=== PATIENT | female | born 1965 | race Caucasian/White ===

== ENCOUNTER 2019-06-20 12:04 | Inpatient (IN) | payer BC, OTHER ==
[~2019-06-20] VITALS: Ht 157.5 cm; Wt 50.0 kg
[2019-06-20 12:05] VITALS: BP_SYST 133
[2019-06-20] MEDS ORDERED: methylPREDNISolone SOD SUCC/PF 62.5 MG/ML VIAL IVP ONE ×2 (12:15→13:00)
[2019-06-20] MEDS ORDERED: ALBUTEROL SULFATE 0.083% 2.5 MG/3 ML VIAL.NEB INH ONE (12:15)
[2019-06-20] MEDS ORDERED: MAGNESIUM SULFATE 50 ML IV ONE (12:15)
[2019-06-20] MEDS ORDERED: IPRATROPIUM BROM 0.5 MG/2.5 ML VIAL.NEB (ATROVENT) INH ONE (12:15)
[2019-06-20 12:42] LABS: BASOPHILS % (AUTO) 0.2 % (0.0-2.0); HEMATOCRIT 44.7 % (36-48); LYMPHOCYTES # (AUTO) 0.3 K/uL (1.0-5.5); LYMPHOCYTES % (AUTO) 7.1 % (20.5-51.5); MEAN CORPUSCULAR HEMOGLOBIN 29 pg (27-31); MEAN CORPUSCULAR HGB CONC 34 % (32-36); MEAN CORPUSCULAR VOLUME 87 fL (79.0-98.0); MONOCYTES # (AUTO) 0.5 K/uL (0.0-1.0); MONOCYTES % (AUTO) 12.6 % (1.7-9.3); NEUTROPHILS # (AUTO) 3.3 K/uL (1.8-7.7); NEUTROPHILS % (AUTO) 80.1 % (40.0-70.0); PLATELET COUNT (AUTO) 183 K/uL (130-430); RED BLOOD CELL COUNT(AUTO) 5.13 MIL/uL (4.2-6.2); RED CELL DISTRIBUTION WIDTH 13.8 % (9.0-15.0); WHITE BLOOD COUNT (AUTO) 4.1 K/uL (4.8-10.8)
[2019-06-20 12:46] LABS: ANION GAP 12 (5-15); CALCIUM 8.1 mg/dL (8.4-11.0); CHLORIDE 93 mmol/L (98-107); CREATININE 1.39 mg/dL (0.55-1.30); GLUCOSE 121 mg/dL (70-99); POTASSIUM 3.2 mmol/L (3.5-5.1); SODIUM SERUM 133 mmol/L (136-145); UREA NITROGEN, BLOOD 15 mg/dL (8-21)
[2019-06-20 12:49] LABS: GFR AFRICAN AMERICAN 51 mL/min (>90)
[2019-06-20 12:50] LABS: INR 1.2 (0.8-1.2); PROTHROMBIN TIME 11.6 SECS (9.5-12.5)
[2019-06-20 13:00] LABS: ALANINE AMINOTRANSFERASE 95 U/L (12-78); ALBUMIN 3.4 g/dL (3.4-4.8); ASPARTATE AMINOTRANSFERASE 134 U/L (10-37); TOTAL BILIRUBIN 0.7 mg/dL (0.0-1.0)
[2019-06-20] MEDS ORDERED: methylPREDNISolone SOD SUCC/PF 62.5 MG/ML VIAL ONE (13:04)
[2019-06-20] MEDS ORDERED: AZITHROMYCIN 500 MG in NS 250 ML IV ONE (13:15)
[2019-06-20] MEDS ORDERED: PIPERACILLIN/TAZO 3.375 GM in NS 50 ML IV ONE (13:15)
[2019-06-20] MEDS ORDERED: VANCOMYCIN HCL 1,000 MG in NS 250 ML IV ONE (13:15)
[2019-06-20] MEDS ORDERED: PROPOFOL DRIP 100 ML IV ONE ×3 (13:30→22:41)
[2019-06-20] MEDS ORDERED: NACL 0.9% 2,000 ML IV ONE (13:45)
[2019-06-20] MEDS ORDERED: ENOXAPARIN SODIUM 60 MG/0.6 ML SYRINGE SUBCUT ONE (13:45)
[2019-06-20] MEDS ORDERED: LORazepam 2 MG/ML VIAL IVP ONE (14:15)
[2019-06-20] MEDS ORDERED: AZITHROMYCIN 500 MG/VIAL (ZITHROMAX) IV ONE (14:49)
[2019-06-20] MEDS ORDERED: PIPERACILLIN/TAZOBACTAM 3.375 GM/VIAL (ZOSYN) IV ONE (14:49)
[2019-06-20 15:06] LABS: ALCOHOL, BLOOD < 3 mg/dL (<10)
[2019-06-20] MEDS ORDERED: VANCOMYCIN HCL 1000 MG/VIAL IV ONE ×2 (15:20→15:23)
[2019-06-20] MEDS ORDERED: IOHEXOL 350 mgI/mL, 150 ML INFUS..BTL IV ONE (15:55)
[2019-06-20] MEDS ORDERED: NOREPINEPHRINE BITARTRATE 4 MG in NS 246 ML IV ONE (16:00)
[2019-06-20] MEDS ORDERED: ASPIRIN 600 MG/SUPP.RECT RC ONE (16:15)
[2019-06-20] MEDS ORDERED: NOREPINEPHRINE 4 MG/4 ML VIAL IV ONE ×2 (16:17→21:50)
[2019-06-20] MEDS ORDERED: IPRATROPIUM/ALBUTEROL SULFATE 3 ML AMPUL.NEB (DUONEB) INH ONE (17:00)
[2019-06-20] MEDS ORDERED: ACETAMINOPHEN 325 MG SUPP.RECT RC ONE (17:00)
[2019-06-20] MEDS ORDERED: IPRATROPIUM/ALBUTEROL SULFATE 3 ML AMPUL.NEB (DUONEB) INH PRN (17:00)
[2019-06-20] MEDS ORDERED: DEXTROSE 50% JECT 50 ML DISP.SYRIN IVP PRN (17:00)
[2019-06-20] MEDS ORDERED: ROCURONIUM BROMIDE 10 MG/ML (ZEMURON) IV ONE (17:07)
[2019-06-20] MEDS ORDERED: ETOMIDATE 20 MG/ 10 ML VIAL (AMIDATE) IVP ONE (17:07)
[2019-06-20] MEDS ORDERED: POTASSIUM CHLORIDE 40 MEQ in NS 250 ML IV ONE (17:30)
[2019-06-20] MEDS ORDERED: PANTOPRAZOLE SODIUM 40 MG/VIAL (PROTONIX) IVP ONE (17:30)
[2019-06-20 18:01] LABS: CREATININE 1.08 mg/dL (0.55-1.30); POTASSIUM 3.4 mmol/L (3.5-5.1)
[2019-06-20 18:26] LABS: BARBITURATE, URINE NEGATIVE (NEG <=200); BENZODIAZEPINE, URINE POSITIVE (NEG <=150); CANNABINOID, URINE NEGATIVE (NEG <=50); COCAINE, URINE NEGATIVE (NEG <=150); METHAMPHETAMINES SCREEN,URINE POSITIVE (NEG <=500); OPIATE, URINE NEGATIVE (NEG <=100); PHENCYCLIDINE SCREEN,URINE NEGATIVE (NEG <=25); UR TRICYCLIC ANTIDEPRESSANTS NEGATIVE (NEG <=300); URINE AMPHETAMINE POSITIVE (NEG <=500); URINE METHADONE NEGATIVE (NEG <=200); URINE OXYCODONE SCREEN NEGATIVE (NEG <=100); URINE PROPOXYPHENE SCREEN NEGATIVE (NEG <=300)
[2019-06-20 18:41] LABS: CALCIUM 6.6 mg/dL (8.4-11.0)
[2019-06-20] MEDS: methylPREDNISolone SOD SUCC/PF 62.5 MG/ML VIAL IVP SCH (18:50)
[2019-06-20 19:11] LABS: CKMB RELATIVE INDEX 0.6 (0.0-2.9); CREATINE KINASE MB 1.4 ng/mL (0-3.6)
[2019-06-20] MEDS: PANTOPRAZOLE SODIUM 40 MG/VIAL (PROTONIX) IVP SCH (21:00)
[2019-06-20] MEDS ORDERED: D5LR 1,000 ML IV SCH (22:15)
[2019-06-21] VITALS (27 sets, daily range): BP systolic 82–118
[2019-06-21] MEDS: methylPREDNISolone SOD SUCC/PF 62.5 MG/ML VIAL IVP SCH ×5 (00:37→23:59)
[2019-06-21] MEDS ORDERED: NOREPINEPHRINE 4 MG/4 ML VIAL IV ONE ×2 (01:59→06:51)
[2019-06-21] MEDS ORDERED: PROPOFOL 200MG/ 20ML VIAL (DIPRIVAN) IV PRN (02:00)
[2019-06-21] MEDS: NOREPINEPHRINE BITARTRATE 4 MG in NS 246 ML IV PRN ×6 (02:50→23:34)
[2019-06-21] MEDS: D5LR 1,000 ML IV SCH ×3 (05:58→21:25)
[2019-06-21] MEDS: INSULIN REGULAR, HUMAN 100 UNITS/ML, 10 ML VIAL (humuLIN R) SUBCUT PRN ×2 (06:24→12:38)
[2019-06-21 06:25] LABS: BASOPHILS % (AUTO) 0.1 % (0.0-2.0); EOSINOPHILS % (AUTO) 0.1 % (0.0-4.0); HEMATOCRIT 38.9 % (36-48); HEMOGLOBIN 12.7 g/dL (12.0-16.0); LYMPHOCYTES # (AUTO) 0.4 K/uL (1.0-5.5); LYMPHOCYTES % (AUTO) 25.1 % (20.5-51.5); MEAN CORPUSCULAR HEMOGLOBIN 29 pg (27-31); MEAN CORPUSCULAR HGB CONC 33 % (32-36); MEAN CORPUSCULAR VOLUME 89 fL (79.0-98.0); MONOCYTES # (AUTO) 0.1 K/uL (0.0-1.0); NEUTROPHILS # (AUTO) 1.2 K/uL (1.8-7.7); NEUTROPHILS % (AUTO) 67.7 % (40.0-70.0); PLATELET COUNT (AUTO) 129 K/uL (130-430); RED BLOOD CELL COUNT(AUTO) 4.38 MIL/uL (4.2-6.2)
[2019-06-21] MEDS: IPRATROPIUM/ALBUTEROL SULFATE 3 ML AMPUL.NEB (DUONEB) INH SCH ×5 (07:05→23:35)
[2019-06-21 07:28] LABS: WHITE BLOOD COUNT (AUTO) 1.8 K/uL (4.8-10.8)
[2019-06-21 08:16] LABS: POTASSIUM 4.2 mmol/L (3.5-5.1)
[2019-06-21 08:23] LABS: CALCIUM 6.5 mg/dL (8.4-11.0)
[2019-06-21 08:24] LABS: CREATININE 0.95 mg/dL (0.55-1.30); TOTAL BILIRUBIN 0.4 mg/dL (0.0-1.0)
[2019-06-21] MEDS: PROPOFOL DRIP 100 ML IV PRN ×2 (08:24→16:45)
[2019-06-21 08:25] LABS: PHOSPHORUS 2.5 mg/dL (2.7-4.5)
[2019-06-21] MEDS ORDERED: FLU VACC TS2019(65UP)/MF59C/PF 45 MCG/0.5 ML SYRINGE I.M. PRN (09:30)
[2019-06-21] MEDS ORDERED: NS 500 ML IV ONE (09:30)
[2019-06-21] MEDS ORDERED: PIPERACILLIN/TAZO 4.5GM/DEX-IS 100 ML IV ONE (09:30)
[2019-06-21] MEDS: ENOXAPARIN SODIUM 40 MG/0.4 ML SYRINGE SUBCUT SCH (09:39)
[2019-06-21] MEDS: PANTOPRAZOLE SODIUM 40 MG/VIAL (PROTONIX) IVP SCH ×2 (09:41→21:25)
[2019-06-21] MEDS ORDERED: FLU VACC QS2019-20 36MOS UP/PF 60 MCG/0.5 ML SYRINGE I.M. PRN (09:45)
[2019-06-21] MEDS: AZITHROMYCIN 250 MG in NS 250 ML IV SCH (13:28)
[2019-06-21] MEDS: PIPERACILLIN/TAZO 4.5GM/DEX-IS 100 ML IV SCH ×2 (14:49→21:25)
[2019-06-21] MEDS ORDERED: FILGRASTIM Non-Formulary 0.48 MG/VIAL SUBCUT SCH (17:00)
[2019-06-21] MEDS ORDERED: TBO-FILGRASTIM 480 MCG/0.8 ML SYRINGE SUBCUT SCH (17:00)
[2019-06-21 17:19] LABS: HEMATOCRIT 39.9 % (36-48); MEAN CORPUSCULAR HEMOGLOBIN 29 pg (27-31); MEAN CORPUSCULAR HGB CONC 33 % (32-36); MEAN CORPUSCULAR VOLUME 89 fL (79.0-98.0); PLATELET COUNT (AUTO) 119 K/uL (130-430); RED BLOOD CELL COUNT(AUTO) 4.51 MIL/uL (4.2-6.2); RED CELL DISTRIBUTION WIDTH 14.5 % (9.0-15.0)
[2019-06-21 17:22] LABS: WHITE BLOOD COUNT (AUTO) 1.7 K/uL (4.8-10.8)
[2019-06-21 17:33] LABS: CREATININE 1.19 mg/dL (0.55-1.30); PHOSPHORUS 1.9 mg/dL (2.7-4.5); POTASSIUM 3.9 mmol/L (3.5-5.1)
[2019-06-21 17:37] LABS: CALCIUM 6.5 mg/dL (8.4-11.0)
[2019-06-21 18:04] LABS: BAND % (MANUAL) 41 % (0-6); LYMPHOCYTES % (MANUAL) 15 % (20-46); MONOCYTES % (MANUAL) 14 % (0-11)
[2019-06-21 18:05] LABS: BASOPHILS % (MANUAL) 0 % (0-2); EOSINOPHILS % (MANUAL) 0 % (0-7); METAMYELOCYTES % 8 % (0-0)
[2019-06-21] MEDS: LINEZOLID 300 ML IV SCH (21:26)
[2019-06-22] VITALS (35 sets, daily range): BP systolic 81–184
[2019-06-22] MEDS: PROPOFOL DRIP 100 ML IV PRN ×2 (00:05→17:27)
[2019-06-22] MEDS: NOREPINEPHRINE BITARTRATE 4 MG in NS 246 ML IV PRN (02:20)
[2019-06-22] MEDS: IPRATROPIUM/ALBUTEROL SULFATE 3 ML AMPUL.NEB (DUONEB) INH SCH ×6 (03:35→23:13)
[2019-06-22] MEDS: methylPREDNISolone SOD SUCC/PF 62.5 MG/ML VIAL IVP SCH ×3 (04:59→18:42)
[2019-06-22] MEDS: PIPERACILLIN/TAZO 4.5GM/DEX-IS 100 ML IV SCH (05:00)
[2019-06-22] MEDS: D5LR 1,000 ML IV SCH ×2 (05:00→08:48)
[2019-06-22] MEDS: INSULIN REGULAR, HUMAN 100 UNITS/ML, 10 ML VIAL (humuLIN R) SUBCUT PRN (07:05)
[2019-06-22 08:18] LABS: HEMATOCRIT 38.4 % (36-48); HEMOGLOBIN 12.2 g/dL (12.0-16.0); MEAN CORPUSCULAR HEMOGLOBIN 29 pg (27-31); MEAN CORPUSCULAR HGB CONC 32 % (32-36); MEAN CORPUSCULAR VOLUME 91 fL (79.0-98.0); PLATELET COUNT (AUTO) 76 K/uL (130-430); RED BLOOD CELL COUNT(AUTO) 4.25 MIL/uL (4.2-6.2); WHITE BLOOD COUNT (AUTO) 4.5 K/uL (4.8-10.8)
[2019-06-22 08:29] LABS: ALBUMIN 1.5 g/dL (3.4-4.8); CREATININE 2.66 mg/dL (0.55-1.30); FREE T4 (FREE THYROXINE) 1.4 ng/dl (0.8-1.5); PHOSPHORUS 4.4 mg/dL (2.7-4.5); POTASSIUM 4.1 mmol/L (3.5-5.1); TOTAL BILIRUBIN 0.8 mg/dL (0.0-1.0)
[2019-06-22 08:36] LABS: CALCIUM 6.2 mg/dL (8.4-11.0)
[2019-06-22 08:44] LABS: INR 1.2 (0.8-1.2)
[2019-06-22] MEDS: NOREPINEPHRINE BITARTRATE 8 MG in NS 242 ML IV PRN ×2 (08:48→17:41)
[2019-06-22] MEDS: PANTOPRAZOLE SODIUM 40 MG/VIAL (PROTONIX) IVP SCH ×2 (08:48→21:07)
[2019-06-22] MEDS: LINEZOLID 300 ML IV SCH ×2 (08:49→21:13)
[2019-06-22] MEDS: ENOXAPARIN SODIUM 40 MG/0.4 ML SYRINGE SUBCUT SCH (08:50)
[2019-06-22] MEDS ORDERED: ALBUMIN HUMAN 5% 500 ML IV ONE (09:00)
[2019-06-22] MEDS ORDERED: ALBUMIN HUMAN 25% 100 ML IV ONE (09:45)
[2019-06-22] MEDS ORDERED: FUROSEMIDE 40 MG/4 ML VIAL IVP ONE (10:15)
[2019-06-22 10:37] LABS: ATYPICAL LYMPHOCYTES % 2 % (0-0); BAND % (MANUAL) 21 % (0-6); BASOPHILS % (MANUAL) 0 % (0-2); EOSINOPHILS % (MANUAL) 0 % (0-7); LYMPHOCYTES % (MANUAL) 22 % (20-46); MONOCYTES % (MANUAL) 12 % (0-11)
[2019-06-22 10:38] LABS: METAMYELOCYTES % 4 % (0-0)
[2019-06-22] MEDS: AZITHROMYCIN 250 MG in NS 250 ML IV SCH (11:17)
[2019-06-22] MEDS ORDERED: DEXTROSE 50% JECT 50 ML DISP.SYRIN IVP PRN (12:00)
[2019-06-22] MEDS ORDERED: INSULIN REGULAR, HUMAN 100 UNITS/ML, 10 ML VIAL (humuLIN R) SUBCUT PRN (12:00)
[2019-06-22] MEDS ORDERED: CALCIUM CHLORIDE 1 GM in NS 100 ML IV ONE (13:00)
[2019-06-22 13:27] LABS: CREATININE 3.18 mg/dL (0.55-1.30); POTASSIUM 4.4 mmol/L (3.5-5.1)
[2019-06-22] MEDS: SODIUM BICARBONATE 8.4% JECT 100 MEQ in D5W 1,000 ML IV SCH ×2 (13:31→20:48)
[2019-06-22 13:41] LABS: INR 1.4 (0.8-1.2); PROTHROMBIN TIME 13.7 SECS (9.5-12.5)
[2019-06-22 13:44] LABS: CALCIUM 6.1 mg/dL (8.4-11.0)
[2019-06-22] MEDS ORDERED: ACETAMINOPHEN 650 MG/20.3 ML UDC GT PRN (14:45)
[2019-06-22] MEDS ORDERED: FUROSEMIDE 100 MG in D5W 90 ML IV SCH (15:30)
[2019-06-22 16:10] LABS: ANTI NUCLEAR AB WITH REFLEX Positive (Negative)
[2019-06-22 18:05] LABS: CREATININE 3.56 mg/dL (0.55-1.30); POTASSIUM 4.5 mmol/L (3.5-5.1)
[2019-06-22 18:12] LABS: CALCIUM 6.8 mg/dL (8.4-11.0)
[2019-06-22] MEDS: PIPERACILLIN/TAZO 2.25G/DEX-IS 50 ML IV SCH (18:42)
[2019-06-22] MEDS ORDERED: NOREPINEPHRINE BITARTRATE 16 MG in NS 234 ML IV PRN (19:00)
[2019-06-22] MEDS ORDERED: ALBUMIN HUMAN 25% 50 ML IV ONE (19:30)
[2019-06-22] MEDS ORDERED: CALCIUM GLUCONATE 1 GM in NS 100 ML IV ONE (19:30)
[2019-06-22 23:35] LABS: CREATININE 4.01 mg/dL (0.55-1.30); POTASSIUM 4.6 mmol/L (3.5-5.1)
[2019-06-22 23:47] LABS: CALCIUM 6.9 mg/dL (8.4-11.0)
[2019-06-23] VITALS (20 sets, daily range): BP systolic 80–149
[2019-06-23 00:08] LABS: CREATINE KINASE MB 2.6 ng/mL (0-3.6)
[2019-06-23] MEDS: PIPERACILLIN/TAZO 2.25G/DEX-IS 50 ML IV SCH ×3 (00:08→12:02)
[2019-06-23] MEDS: methylPREDNISolone SOD SUCC/PF 62.5 MG/ML VIAL IVP SCH ×2 (00:09→05:42)
[2019-06-23] MEDS ORDERED: SODIUM BICARBONATE 8.4% JECT 50 MEQ/50 ML SYRINGE IVP ONE (00:15)
[2019-06-23] MEDS ORDERED: CALCIUM CHLORIDE 1 GM in NS 100 ML IV ONE (00:15)
[2019-06-23] MEDS ORDERED: CALCIUM CHLORIDE 1 GM/10 ML DISP.SYRIN (14 mEq Ca++/SYR) ONE (00:32)
[2019-06-23] MEDS ORDERED: SODIUM BICARBONATE 8.4% JECT 50 MEQ/50 ML SYRINGE ONE ×2 (00:32→14:02)
[2019-06-23] MEDS: IPRATROPIUM/ALBUTEROL SULFATE 3 ML AMPUL.NEB (DUONEB) INH SCH ×3 (03:16→11:07)
[2019-06-23 06:26] LABS: ALBUMIN 1.9 g/dL (3.4-4.8); CALCIUM 7.1 mg/dL (8.4-11.0); CREATININE 4.24 mg/dL (0.55-1.30); POTASSIUM 4.9 mmol/L (3.5-5.1); TOTAL BILIRUBIN 2.2 mg/dL (0.0-1.0)
[2019-06-23] MEDS ORDERED: DEXTROSE 50% JECT 50 ML DISP.SYRIN ONE (06:59)
[2019-06-23] MEDS ORDERED: PHENYLEPHRINE HCL 30 MG in NS 247 ML IV PRN (08:00)
[2019-06-23] MEDS ORDERED: ALBUMIN HUMAN 25% 50 ML IV SCH ×2 (08:15→08:45)
[2019-06-23 08:45] LABS: HEMOGLOBIN 9.6 g/dL (12.0-16.0); MEAN CORPUSCULAR HEMOGLOBIN 29 pg (27-31); MEAN CORPUSCULAR HGB CONC 33 % (32-36); MEAN CORPUSCULAR VOLUME 89 fL (79.0-98.0); RED BLOOD CELL COUNT(AUTO) 3.28 MIL/uL (4.2-6.2); WHITE BLOOD COUNT (AUTO) 7.1 K/uL (4.8-10.8)
[2019-06-23] MEDS ORDERED: NS 500 ML IV ONE (08:45)
[2019-06-23] MEDS: ENOXAPARIN SODIUM 40 MG/0.4 ML SYRINGE SUBCUT SCH (09:00)
[2019-06-23] MEDS: PANTOPRAZOLE SODIUM 40 MG/VIAL (PROTONIX) IVP SCH (09:12)
[2019-06-23] MEDS: LINEZOLID 300 ML IV SCH (09:12)
[2019-06-23 09:37] LABS: PLATELET COUNT (AUTO) 6 K/uL (130-430)
[2019-06-23 10:24] LABS: BASOPHILS % (MANUAL) 0 % (0-2); EOSINOPHILS % (MANUAL) 0 % (0-7); LYMPHOCYTES % (MANUAL) 8 % (20-46); MONOCYTES % (MANUAL) 80 % (0-11)
[2019-06-23] MEDS: AZITHROMYCIN 250 MG in NS 250 ML IV SCH (12:03)
[2019-06-23] MEDS: PROPOFOL DRIP 100 ML IV PRN (12:04)
[2019-06-23] MEDS ORDERED: ADENOSINE 6MG/2ML VIAL ONE (13:24)
[2019-06-23] MEDS ORDERED: DILTIAZEM HCL 125 MG/25 ML VIAL IV ONE (13:29)
[2019-06-23] MEDS ORDERED: DILTIAZEM HCL 25 MG/5 ML VIAL ONE (13:42)
[2019-06-23 14:16] LABS: BASOPHILS % (AUTO) 0.1 % (0.0-2.0); EOSINOPHILS % (AUTO) 0.5 % (0.0-4.0); HEMATOCRIT 26.6 % (36-48); HEMOGLOBIN 8.6 g/dL (12.0-16.0); LYMPHOCYTES # (AUTO) 0.6 K/uL (1.0-5.5); LYMPHOCYTES % (AUTO) 9.8 % (20.5-51.5); MEAN CORPUSCULAR HEMOGLOBIN 29 pg (27-31); MEAN CORPUSCULAR HGB CONC 32 % (32-36); MEAN CORPUSCULAR VOLUME 90 fL (79.0-98.0); MONOCYTES % (AUTO) 0.2 % (1.7-9.3); NEUTROPHILS # (AUTO) 5.5 K/uL (1.8-7.7); NEUTROPHILS % (AUTO) 89.4 % (40.0-70.0); RED BLOOD CELL COUNT(AUTO) 2.95 MIL/uL (4.2-6.2); RED CELL DISTRIBUTION WIDTH 15.3 % (9.0-15.0); WHITE BLOOD COUNT (AUTO) 6.1 K/uL (4.8-10.8)
[2019-06-23 14:22] LABS: PLATELET COUNT (AUTO) 5 K/uL (130-430)
[2019-06-23 14:42] LABS: CALCIUM 9.6 mg/dL (8.4-11.0); CREATININE 4.62 mg/dL (0.55-1.30)
[2019-06-23 14:47] LABS: ALBUMIN 1.4 g/dL (3.4-4.8); POTASSIUM 6.7 mmol/L (3.5-5.1); TOTAL BILIRUBIN 1.6 mg/dL (0.0-1.0)
[2019-06-23] MEDS ORDERED: CEFTAROLINE FOSAMIL ACETATE 400 MG in NS 250 ML IV SCH (21:00)
[2019-06-26 14:06] LABS: ATYPICAL pANCA <1:20 titer (Neg:<1:20); CYTOPLASMIC (C-ANCA) <1:20 titer (Neg:<1:20); CYTOPLASMIC (P-ANCA) <1:20 titer (Neg:<1:20)
[2019-06-26 19:11] LABS: LEGIONELLA PNEUMOPHILIA AB <0.91 OD ratio (0.00-0.90)
[2019-06-26 20:09] LABS: MYCOPLASMA PNEUMONIAE IgM <770 U/mL (0-769)
[2019-06-29 10:59] LABS: ALPHA-1-ANTITRYPSIN, S 199 mg/dL (101-187); MYCOPLASMA PNEUMONIAE IgG 586 U/mL (0-99); RA LATEX TURBID 19.7 IU/mL (0.0-13.9)
== END 2019-06-23 13:43 | disposition expired | DRG 871 ==
LOC: SED 12:04 → SIC 16:26
PROVIDERS: ADMIT Internal Medicine; ATTEND Internal Medicine
PROC: 02HV33Z Insertion of Infusion Device into Superior Vena Cava, Percutaneous Approach (ICD-10-PCS; principal; 2019-06-22)
PROC: B548ZZA Ultrasonography of Superior Vena Cava, Guidance (ICD-10-PCS; 2019-06-22)
DX: A41.2 Sepsis due to unspecified staphylococcus (principal); J96.01 Acute respiratory failure with hypoxia; N17.0 Acute kidney failure with tubular necrosis; R65.21 Severe sepsis with septic shock; J10.00 Influenza due to other identified influenza virus with unspecified type of pneumonia; J18.9 Pneumonia, unspecified organism; I21.4 Non-ST elevation (NSTEMI) myocardial infarction; E43 Unspecified severe protein-calorie malnutrition; D61.818 Other pancytopenia; I47.1 Supraventricular tachycardia; J44.0 Chronic obstructive pulmonary disease with (acute) lower respiratory infection; J44.1 Chronic obstructive pulmonary disease with (acute) exacerbation; E87.1 Hypo-osmolality and hyponatremia; E87.2 Acidosis; D69.59 Other secondary thrombocytopenia; F17.210 Nicotine dependence, cigarettes, uncomplicated; I27.81 Cor pulmonale (chronic); E87.6 Hypokalemia; I48.0 Paroxysmal atrial fibrillation; E83.51 Hypocalcemia; Z98.891 History of uterine scar from previous surgery; Z79.899 Other long term (current) drug therapy
CPT/HCPCS: 36415; 36600; 70450-TC; 71045; 71275; 80048; 80053; 80061; 80307; 82103; 82140-TC; 82164; 82550-TC; 82553-TC; 82803-TC; 82962; 83605; 83615-TC; 83735-TC; 83880; 84100-TC; 84439; 84484; 85007; 85025; 85027; 85379; 85384-TC; 85610-TC; 85730-TC; 86038; 86256; 86431; 86710; 86713; 86738; 87040-TC; 87081; 87086; 87186-TC; 87449; 92950; 93005; 93306; 94002; 94003; 94640; 94660; 96365; 96366; 96367; 96368; 96372; 96375; 99291; C1751; C9113; G0482; J0153; J0456; J0610; J0712; J1447; J1650; J1815; J1940; J1956; J2020; J2060; J2370; J2543; J2704; J2930; J3370; J3475; J3480; J3490; J7030; J7040; J7042; J7050; J7060; J7120; J7613; J7620; P9046; Q9967